=== PATIENT | male | born 1985 | race Caucasian/White ===

== ENCOUNTER → 2018-08-18 | Outpatient (CLI) | payer BC, OTHER ==
--- NOTE | ~2018-08-18 | SLE ---
[facility] [place] [address] POLYSOMNOGRAPHY STUDY Name: ANGELA HERNÁNDEZ Room #: REG [facility]#: [id number] Admission: 08/18/18 Attend Phys: Chan Robledo MD Discharge: Date of : 83 Report #: [id number] THIS REPORT FOR: //name// CC: Chan Painting MD DATE OF SERVICE: 08/18/2018 Sleep Study ATTENDING PHYSICIAN: Nickolas Painting MD The patient is 32 years old who weighs 235 pounds and is 70 inches tall. The patient's BMI was 33.7. The patient's [place] score was 14. The patient had a previous home sleep study and was found to have moderate PURNIMA along with nocturnal hypoxia related to PURNIMA. The patient was referred back for in-lab CPAP titration study. During the night study, the patient spent 430 minutes in bed and slept for 411 minutes with a sleep efficiency of 95%. Sleep latency was 7.7 minutes with a REM latency of 160.7 minutes. Overall, sleep architecture showed normal stage 1 sleep, increased stage 2 sleep, which was 60% of the total sleep time, normal slow wave sleep, and normal REM sleep. EKG monitoring revealed an average heart rate of 65 beats per minute. No sustained arrhythmias were observed. PLMs were seen at an index of 18 per hour and 3.5 per hour caused EEG arousals. The patient was started on CPAP at 5 cm water and titrated up to 7 cm water. At the final pressure, the patient slept for 350 minutes including 93 minutes of REM sleep. The patient had supine REM sleep. The patient's AHI was reduced to only 1.4 per hour and oxygen saturations remained above 88%. IMPRESSION: 1. Moderate sleep apnea diagnosed by home sleep study. 2. Qjmp-si-xjkagaue periodic limb movements without any significant electroencephalogram arousals. This does not need to be treated unless the patient has symptoms of restless legs during the day. RECOMMENDATIONS: 1. CPAP at 7 cm water completely eliminated the patient's sleep apnea and should be used on a nightly basis. 2. Follow up in 4-6 weeks to assess compliance with CPAP and to document [facility] [address] [place] [address] POLYSOMNOGRAPHY STUDY Name: ANGELA HERNÁNDEZ Room #: REG [facility].#: [id number] Admission: 08/18/18 Attend Phys: Chan Robledo MD Discharge: Date of : 83 Report #: [id number] clinical improvement. 3. Weight loss is strongly advised. 4. Avoid [employer] depressants. 5. Cautioned regarding driving until symptoms of sleep apnea resolve with the use of CPAP. <ELECTRONICALLY SIGNED> By: Chan Robledo MD 08/23/18 [id number] Chan Robledo MD /nt
== END ==
LOC: SLEEPLAB 08-10 08:49
DX: G47.33 Obstructive sleep apnea (adult) (pediatric) (principal); G47.61 Periodic limb movement disorder